=== PATIENT | female | born 1935 | race Caucasian/White ===

== ENCOUNTER 2017-04-01 10:52 | Emergency (ER) | payer OTHER ==
[~2017-04-01] VITALS: Ht 152.4 cm; Wt 56.7 kg
--- NOTE | 2017-04-01 10:52 | NUR ---
Arrived via BLS ambulance with compliant of right upper arm deformity. Radial pulse 2+, sensation grossly intact. Patient to ER bed 4 to gown for evaluation. Side rails up. Report given to Shiv RASCON.
--- NOTE | 2017-04-01 10:55 | NUR ---
ER at bedside examining patient.
--- NOTE | 2017-04-01 11:00 | NUR ---
Pt presents to ER c/o right upper arm pain s/p mechanical fall. Pt states pain 8/10. Pt states she previously broke affected R arm and had surgery to correct fracture approx 2 years ago. No significant medical history, but is an alcoholic. Pt is AOX4, NKDA, no acute respiratory distress noted.
[2017-04-01 11:02] VITALS: BP_SYST 126
[2017-04-01] MEDS ORDERED: NACL 0.9% 1,000 ML IV ONE (11:45)
[2017-04-01] MEDS ORDERED: KETOROLAC TROMETHAMINE 15 MG VIAL IVP ONE (11:45)
--- NOTE | 2017-04-01 11:52 | NUR ---
Radiology at bedside for xray.
[2017-04-01 12:09] LABS: BASOPHILS # (AUTO) 0.2 K/uL (0.0-0.2); BASOPHILS % (AUTO) 2.8 % (0.0-2.0); HEMOGLOBIN 13.5 g/dL (12.0-16.0); LYMPHOCYTES # (AUTO) 0.3 K/uL (1.0-5.5); LYMPHOCYTES % (AUTO) 3.8 % (20.5-51.5); MEAN CORPUSCULAR HEMOGLOBIN 34 pg (27-31); MEAN CORPUSCULAR HGB CONC 34 % (32-36); MEAN CORPUSCULAR VOLUME 101 fL (79.0-98.0); MONOCYTES # (AUTO) 0.6 K/uL (0.0-1.0); MONOCYTES % (AUTO) 6.4 % (1.7-9.3); NEUTROPHILS # (AUTO) 7.6 K/uL (1.8-7.7); PLATELET COUNT (AUTO) 337 K/uL (130-430); RED BLOOD CELL COUNT(AUTO) 3.97 MIL/uL (4.2-6.2); RED CELL DISTRIBUTION WIDTH 12.8 % (9.0-15.0); WHITE BLOOD COUNT (AUTO) 8.7 K/uL (4.8-10.8)
[2017-04-01 12:19] LABS: ANION GAP 15 (5-15); CALCIUM 8.9 mg/dL (8.4-11.0); CHLORIDE 98 mmol/L (98-107); GLUCOSE 125 mg/dL (70-99); POTASSIUM 3.9 mmol/L (3.5-5.1); SODIUM SERUM 133 mmol/L (136-145); UREA NITROGEN, BLOOD 7 mg/dL (8-21)
[2017-04-01 12:22] LABS: PROTHROMBIN TIME 10.6 SECS (9.5-12.5)
[2017-04-01 12:23] LABS: ALANINE AMINOTRANSFERASE 31 U/L (12-78); ALBUMIN 3.1 g/dL (3.4-4.8); AMYLASE 22 U/L (0-100); ASPARTATE AMINOTRANSFERASE 55 U/L (10-37); LIPASE 102 U/L (73-393); TOTAL BILIRUBIN 0.8 mg/dL (0.0-1.0)
--- NOTE | 2017-04-01 12:30 | NUR ---
# 20 gauge angiocath placed to L wrist. Use of asceptic technique. Opsite placed over site. Blood return noted. Blood for lab drawn from site. Flushed with 10 cc of normal saline. No evidence of infiltration noted. Patient tolerated well.
--- NOTE | 2017-04-01 12:40 | NUR ---
Pt medicated for pain and started on IVF. Pt tolerated well. Will continue to monitor.
--- NOTE | 2017-04-01 13:30 | NUR ---
ER at bedside examining patient and providing update. Pt verbalizes understanding of teaching.
--- NOTE | 2017-04-01 14:40 | NUR ---
Long arm splint applied to right arm. Radial pulse noted. Capillary refill < 3 seconds. Patient has ability to move non-splinted digits. Has sensation present to affected site. Skin color within normal limits. Applied for pain management control.
--- NOTE | 2017-04-01 14:57 | NUR ---
Patient given written and verbal discharge instructions and verbalizes understanding. ER MD discussed with patient the results and treatment provided. Patient in stable condition. ID arm band removed. IV catheter removed intact and dressing applied, no active bleeding. Rx of Motrin, [place] given. Patient has verbalized heavy ETOH use. Couseled patient extensively on need to refrain from ETOH use, drivng and making major life decisions while taking [place]. Patient will follow with Dr. Teo Bhakta for repair of Fx. Patient educated on pain management and to follow up with PMD. Pain Scale 0/10. Opportunity for questions provided and answered.
[2017-04-01 15:06] VITALS: BP_SYST 112
== END 2017-04-01 15:06 | disposition home or self-care (01) ==
LOC: SED 10:52
DX: S42.301A Unspecified fracture of shaft of humerus, right arm, initial encounter for closed fracture (principal); W18.09XA Striking against other object with subsequent fall, initial encounter; Y93.01 Activity, walking, marching and hiking; Y92.89 Other specified places as the place of occurrence of the external cause; Y99.8 Other external cause status
CPT/HCPCS: 29105; 36415; 73030; 80053; 82150; 83690; 85025; 85610; 85730; 96361; 96374; 99285; J1885; J7030

== ENCOUNTER 2017-12-22 11:23 | Inpatient (IN) | payer OTHER ==
[~2017-12-22] VITALS: Ht 154.9 cm; Wt 54.4 kg
[2017-12-22 11:23] VITALS: BP_SYST 138
[2017-12-22] MEDS ORDERED: NACL 0.9% 500 ML IV ONE (12:00)
[2017-12-22] MEDS ORDERED: NS 500 ML IV ONE (12:00)
[2017-12-22 12:22] LABS: BASOPHILS # (AUTO) 0.1 K/uL (0.0-0.2); BASOPHILS % (AUTO) 0.8 % (0.0-2.0); EOSINOPHILS # (AUTO) 0.1 K/uL (0.0-0.4); EOSINOPHILS % (AUTO) 0.7 % (0.0-4.0); HEMOGLOBIN 14.4 g/dL (12.0-16.0); LYMPHOCYTES # (AUTO) 0.8 K/uL (1.0-5.5); LYMPHOCYTES % (AUTO) 6.8 % (20.5-51.5); MEAN CORPUSCULAR HEMOGLOBIN 34 pg (27-31); MEAN CORPUSCULAR HGB CONC 34 % (32-36); MEAN CORPUSCULAR VOLUME 99 fL (79.0-98.0); MONOCYTES # (AUTO) 0.5 K/uL (0.0-1.0); NEUTROPHILS # (AUTO) 10.8 K/uL (1.8-7.7); NEUTROPHILS % (AUTO) 87.7 % (40.0-70.0); PLATELET COUNT (AUTO) 487 K/uL (130-430); RED BLOOD CELL COUNT(AUTO) 4.23 MIL/uL (4.2-6.2); WHITE BLOOD COUNT (AUTO) 12.3 K/uL (4.8-10.8)
[2017-12-22 12:35] LABS: INR 1.1 (0.8-1.2); PROTHROMBIN TIME 10.7 SECS (9.5-12.5)
[2017-12-22 12:36] LABS: ALANINE AMINOTRANSFERASE 23 U/L (12-78); ALBUMIN 3.5 g/dL (3.4-4.8); ANION GAP 15 (5-15); ASPARTATE AMINOTRANSFERASE 47 U/L (10-37); CALCIUM 10.2 mg/dL (8.4-11.0); CREATININE 0.52 mg/dL (0.55-1.30); GLUCOSE 71 mg/dL (70-99); SODIUM SERUM 131 mmol/L (136-145); UREA NITROGEN, BLOOD 13 mg/dL (8-21)
[2017-12-22 12:39] LABS: CHLORIDE 94 mmol/L (98-107); POTASSIUM 2.7 mmol/L (3.5-5.1)
[2017-12-22] MEDS ORDERED: POTASSIUM CHLORIDE 20 MEQ TAB.PRT.SR PO ONE (12:45)
[2017-12-22 13:07] LABS: CKMB RELATIVE INDEX 1.1 (0.0-2.9); CREATINE KINASE MB 5.5 ng/mL (0-3.6)
[2017-12-22 13:43] LABS: BILIRUBIN,URINE NEGATIVE (NEGATIVE); BLOOD, URINE NEGATIVE (NEGATIVE); CLARITY/URINE CLEAR (CLEAR); COLOR,URINE YELLOW (YELLOW); GLUCOSE,URINE NEGATIVE (NEGATIVE); KETONES,URINE 3+ (NEGATIVE); LEUKOCYTE ESTERASE ,URINE NEGATIVE (NEGATIVE); NITRITE, URINE NEGATIVE (NEGATIVE); PROTEIN URINE NEGATIVE (NEGATIVE); UROBILINOGEN,URINE 0.2 (0.2-1.0)
[2017-12-22 14:02] LABS: BACTERIA,URINE FEW /HPF (None Seen); MUCUS,URINE None Seen /LPF (None Seen); RBC,URINE 0-3 /HPF (0-3); WBC,URINE 0-3 /HPF (0-3)
[2017-12-22] MEDS ORDERED: OCUVITE PO (14:33)
[2017-12-22] MEDS ORDERED: CYAN100070 PO (14:33)
[2017-12-22] MEDS ORDERED: ALBMDI INH (14:33)
[2017-12-22] MEDS ORDERED: ASCO500T20 PO (14:33)
[2017-12-22 15:31] VITALS: BP_SYST 125
[2017-12-22] MEDS ORDERED: ACETAMINOPHEN 325 MG TABLET PO PRN (16:45)
[2017-12-22] MEDS ORDERED: MAGNESIUM SULFATE 50 ML IV PRN (16:45)
[2017-12-22] MEDS ORDERED: MUPIROCIN 2% TOPICAL OINTMENT 22 GM NS PRN (16:45)
[2017-12-22] MEDS ORDERED: ONDANSETRON HCL 4 MG/2 ML VIAL IVP PRN (16:45)
[2017-12-22] MEDS ORDERED: DOCUSATE SODIUM 100 MG CAPSULE PO PRN (16:45)
[2017-12-22] MEDS ORDERED: MORPHINE 2 MG/ML INJ. SYRINGE IVP PRN ×2 (16:45)
[2017-12-22] MEDS ORDERED: ALBUTEROL SULFATE 0.083% 2.5 MG/3 ML VIAL.NEB INH PRN (16:45)
[2017-12-22] MEDS ORDERED: LORazepam 2 MG/ML VIAL IVP PRN (16:45)
[2017-12-22 17:02] VITALS: BP_SYST 125
[2017-12-22] MEDS: cefTRIAXone 1 GM in D5W 50 ML IV SCH (18:10)
[2017-12-22] MEDS: NACL 0.9% 1,000 ML IV SCH (18:11)
[2017-12-22 19:00] VITALS: BP_SYST 111
[2017-12-22 20:00] VITALS: BP_SYST 111
[2017-12-22] MEDS: HEPARIN SODIUM,PORCINE 5000 UNITS/ML VIAL SUBCUT SCH (21:03)
[2017-12-23] VITALS: BP_SYST 123
[2017-12-23] MEDS: NACL 0.9% 1,000 ML IV SCH ×2 (05:55→20:24)
[2017-12-23 06:38] LABS: BASOPHILS # (AUTO) 0.1 K/uL (0.0-0.2); BASOPHILS % (AUTO) 0.8 % (0.0-2.0); EOSINOPHILS # (AUTO) 0.4 K/uL (0.0-0.4); EOSINOPHILS % (AUTO) 3.8 % (0.0-4.0); HEMATOCRIT 30.5 % (36-48); HEMOGLOBIN 10.7 g/dL (12.0-16.0); LYMPHOCYTES # (AUTO) 1.2 K/uL (1.0-5.5); LYMPHOCYTES % (AUTO) 11.1 % (20.5-51.5); MEAN CORPUSCULAR HEMOGLOBIN 35 pg (27-31); MEAN CORPUSCULAR HGB CONC 35 % (32-36); MEAN CORPUSCULAR VOLUME 100 fL (79.0-98.0); MONOCYTES % (AUTO) 9.2 % (1.7-9.3); NEUTROPHILS # (AUTO) 7.7 K/uL (1.8-7.7); NEUTROPHILS % (AUTO) 75.1 % (40.0-70.0); PLATELET COUNT (AUTO) 400 K/uL (130-430); RED BLOOD CELL COUNT(AUTO) 3.06 MIL/uL (4.2-6.2); RED CELL DISTRIBUTION WIDTH 12.4 % (9.0-15.0); WHITE BLOOD COUNT (AUTO) 10.4 K/uL (4.8-10.8)
[2017-12-23 07:14] LABS: ANION GAP 11 (5-15); CALCIUM 8.9 mg/dL (8.4-11.0); CHLORIDE 103 mmol/L (98-107); CREATININE 0.42 mg/dL (0.55-1.30); GLUCOSE 90 mg/dL (70-99); POTASSIUM 3.3 mmol/L (3.5-5.1); SODIUM SERUM 136 mmol/L (136-145); UREA NITROGEN, BLOOD 10 mg/dL (8-21)
[2017-12-23 08:00] VITALS: BP_SYST 144
[2017-12-23] MEDS: HEPARIN SODIUM,PORCINE 5000 UNITS/ML VIAL SUBCUT SCH ×2 (08:38→20:28)
[2017-12-23] MEDS: POTASSIUM CHLORIDE 20 MEQ TAB.PRT.SR PO PRN (08:55)
[2017-12-23 11:19] VITALS: BP_SYST 122
[2017-12-23] MEDS: PHENYLEPHRINE HCL 0.25% NASAL 15 ML NASPR NS SCH ×2 (12:34→20:29)
[2017-12-23] MEDS: LORATADINE 10 MG TABLET PO SCH (12:34)
[2017-12-23 15:46] VITALS: BP_SYST 107
[2017-12-23] MEDS: cefTRIAXone 1 GM in D5W 50 ML IV SCH (18:06)
[2017-12-23 20:00] VITALS: BP_SYST 111
[2017-12-23 23:14] VITALS: BP_SYST 121
[2017-12-23] MEDS: ZOLPIDEM TARTRATE 5 MG TABLET PO PRN (23:42)
[2017-12-24 06:56] LABS: ANION GAP 3 (5-15); CALCIUM 8.9 mg/dL (8.4-11.0); CHLORIDE 105 mmol/L (98-107); CREATININE 0.42 mg/dL (0.55-1.30); GLUCOSE 95 mg/dL (70-99); LACTATE DEHYDROGENASE 151 U/L (81-234); POTASSIUM 3.2 mmol/L (3.5-5.1); SODIUM SERUM 134 mmol/L (136-145); UREA NITROGEN, BLOOD 8 mg/dL (8-21)
[2017-12-24 07:26] LABS: HEMATOCRIT 29.4 % (36-48); HEMOGLOBIN 10.1 g/dL (12.0-16.0); MEAN CORPUSCULAR HEMOGLOBIN 34 pg (27-31); MEAN CORPUSCULAR HGB CONC 34 % (32-36); MEAN CORPUSCULAR VOLUME 100 fL (79.0-98.0); PLATELET COUNT (AUTO) 431 K/uL (130-430); RED BLOOD CELL COUNT(AUTO) 2.94 MIL/uL (4.2-6.2); RED CELL DISTRIBUTION WIDTH 12.1 % (9.0-15.0); WHITE BLOOD COUNT (AUTO) 7.6 K/uL (4.8-10.8)
[2017-12-24 08:00] VITALS: BP_SYST 131
[2017-12-24 08:49] LABS: RETICULOCYTE COUNT 1.3 % (0.5-1.5)
[2017-12-24] MEDS ORDERED: DIATR MEGLU/DIATRIZ SOD 30 ML SOLUTION PO ONE (10:08)
[2017-12-24 10:21] LABS: BASOPHILS % (MANUAL) 0 % (0-2); EOSINOPHILS % (MANUAL) 6 % (0-7); LYMPHOCYTES % (MANUAL) 24 % (20-46); MONOCYTES % (MANUAL) 14 % (0-11)
[2017-12-24] MEDS ORDERED: IOHEXOL 100 ML IV ONE (12:09)
[2017-12-24] MEDS: HEPARIN SODIUM,PORCINE 5000 UNITS/ML VIAL SUBCUT SCH ×2 (15:21→21:07)
[2017-12-24] MEDS: LORATADINE 10 MG TABLET PO SCH (15:21)
[2017-12-24] MEDS: PHENYLEPHRINE HCL 0.25% NASAL 15 ML NASPR NS SCH ×2 (15:22→21:08)
[2017-12-24 15:30] VITALS: BP_SYST 160
[2017-12-24] MEDS: cefTRIAXone 1 GM in D5W 50 ML IV SCH (18:01)
[2017-12-24] MEDS: POTASSIUM CHLORIDE 20 MEQ TAB.PRT.SR PO PRN (18:02)
[2017-12-24] MEDS: D5NS 1,000 ML IV SCH (18:02)
[2017-12-24 20:00] VITALS: BP_SYST 132
[2017-12-24] MEDS: ZOLPIDEM TARTRATE 5 MG TABLET PO PRN (22:58)
[2017-12-25 01:12] VITALS: BP_SYST 134
[2017-12-25 06:26] LABS: BASOPHILS # (AUTO) 0.1 K/uL (0.0-0.2); BASOPHILS % (AUTO) 1.2 % (0.0-2.0); EOSINOPHILS # (AUTO) 0.4 K/uL (0.0-0.4); EOSINOPHILS % (AUTO) 6.1 % (0.0-4.0); HEMATOCRIT 29.9 % (36-48); HEMOGLOBIN 10.4 g/dL (12.0-16.0); LYMPHOCYTES # (AUTO) 1.5 K/uL (1.0-5.5); LYMPHOCYTES % (AUTO) 22.4 % (20.5-51.5); MEAN CORPUSCULAR HEMOGLOBIN 35 pg (27-31); MEAN CORPUSCULAR HGB CONC 35 % (32-36); MEAN CORPUSCULAR VOLUME 100 fL (79.0-98.0); MONOCYTES # (AUTO) 0.6 K/uL (0.0-1.0); MONOCYTES % (AUTO) 9.1 % (1.7-9.3); NEUTROPHILS # (AUTO) 4.3 K/uL (1.8-7.7); NEUTROPHILS % (AUTO) 61.2 % (40.0-70.0); PLATELET COUNT (AUTO) 443 K/uL (130-430); RED BLOOD CELL COUNT(AUTO) 3.01 MIL/uL (4.2-6.2); RED CELL DISTRIBUTION WIDTH 12.2 % (9.0-15.0); WHITE BLOOD COUNT (AUTO) 6.9 K/uL (4.8-10.8)
[2017-12-25] MEDS: D5NS 1,000 ML IV SCH (06:32)
[2017-12-25 06:37] LABS: ANION GAP 3 (5-15); CALCIUM 8.9 mg/dL (8.4-11.0); CHLORIDE 104 mmol/L (98-107); CREATININE 0.44 mg/dL (0.55-1.30); GLUCOSE 113 mg/dL (70-99); POTASSIUM 3.5 mmol/L (3.5-5.1); SODIUM SERUM 137 mmol/L (136-145); UREA NITROGEN, BLOOD 6 mg/dL (8-21)
[2017-12-25] MEDS: PHENYLEPHRINE HCL 0.25% NASAL 15 ML NASPR NS SCH (09:35)
[2017-12-25] MEDS: LORATADINE 10 MG TABLET PO SCH (09:36)
[2017-12-25] MEDS: HEPARIN SODIUM,PORCINE 5000 UNITS/ML VIAL SUBCUT SCH (09:37)
[2017-12-25 11:16] LABS: ALBUMIN 2.6 g/dL (2.9-4.4); ALPHA-1-GLOBULIN 0.3 g/dL (0.0-0.4); ALPHA-2-GLOBULIN 0.7 g/dL (0.4-1.0); BETA GLOBULIN 0.8 g/dL (0.7-1.3); GLOBULIN, TOTAL 2.7 g/dL (2.2-3.9); M-SPIKE 0.6 g/dL (Not Observed)
[2017-12-25 12:00] VITALS: BP_SYST 112
[2017-12-25 12:07] LABS: FOLATE (FOLIC ACID) 7.5 ng/mL (>3.0)
[2017-12-25 16:00] VITALS: BP_SYST 134
[2017-12-25 17:14] VITALS: BP_SYST 112
== END 2017-12-25 17:30 | DRG 543 ==
LOC: SED 11:23 → SMU 14:40
PROVIDERS: ADMIT General Practice; ATTEND General Practice
DX: M84.58XA Pathological fracture in neoplastic disease, other specified site, initial encounter for fracture (principal); S32.059A Unspecified fracture of fifth lumbar vertebra, initial encounter for closed fracture; S32.10XA Unspecified fracture of sacrum, initial encounter for closed fracture; N39.0 Urinary tract infection, site not specified; E87.1 Hypo-osmolality and hyponatremia; C90.00 Multiple myeloma not having achieved remission; E87.6 Hypokalemia; F17.210 Nicotine dependence, cigarettes, uncomplicated; J44.9 Chronic obstructive pulmonary disease, unspecified; W07.XXXA Fall from chair, initial encounter; Y93.89 Activity, other specified; Y92.89 Other specified places as the place of occurrence of the external cause; Y99.8 Other external cause status; N28.89 Other specified disorders of kidney and ureter
CPT/HCPCS: 36415; 71045; 71260-TC; 72131; 73030; 80048; 80053; 81000-TC; 82550-TC; 82553-TC; 82607; 82746; 83036; 83605; 83615-TC; 83735-TC; 84155; 84165; 84484; 85007; 85025; 85027; 85044-TC; 85610-TC; 85730-TC; 87040-TC; 87081; 87086; 93005; 96360; 96361; 97110-GP; 97116-GP; 97530-GP; 99285; G0482; J0696; J1644; J7030; J7042; J7060; Q9964; Q9967